=== PATIENT | female | born 1975 | race Hispanic/Latino ===

== ENCOUNTER 2022-04-29 05:30 | Observation (INO) | payer OTHER ==
[2022-04-25 11:48] VITALS: BP 140/81
[2022-04-25 11:50] LABS: BASOPHILS % (AUTO) 0.5 % (0.0-5.0); EOSINOPHILS % (AUTO) 3.2 % (0.0-8.0); HEMATOCRIT 45.6 % (36-48); LYMPHOCYTES % (AUTO) 28.5 % (21.0-51.0); MEAN CORPUSCULAR HEMOGLOBIN 31.5 pg (27.0-33.0); MEAN CORPUSCULAR HGB CONC 33.3 g/dL (32.0-36.0); MEAN CORPUSCULAR VOLUME 94.6 fL (79-99); MONOCYTES % (AUTO) 8.6 % (3.0-13.0); PLATELET COUNT (AUTO) 267 K/uL (130-400); RED BLOOD CELL COUNT(AUTO) 4.82 MIL/uL (4.00-5.50); RED CELL DISTRIBUTION WIDTH 12.2 % (11.0-15.5); WHITE BLOOD COUNT (AUTO) 8.3 K/uL (4.8-10.8)
[2022-04-25 12:14] LABS: APPEARANCE,URINE CLEAR (CLEAR); BILIRUBIN,URINE NEGATIVE (NEGATIVE); COLOR,URINE YELLOW (YELLOW); GLUCOSE, URINE (UA) NEGATIVE (NEGATIVE); KETONES,URINE NEGATIVE (NEGATIVE); LEUKOCYTE ESTERASE ,URINE TRACE (NEGATIVE); NITRATE,URINE NEGATIVE (NEGATIVE); OCCULT BLOOD,URINE SMALL (NEGATIVE); PROTEIN,URINE NEGATIVE (NEGATIVE); UROBILINOGEN,URINE 0.2 mg/dL (0.2-1.0)
[2022-04-25 12:19] LABS: BACTERIA,URINE Rare /HPF (None Seen); MUCUS,URINE Few LPF (None Seen); RBC,URINE 0-1 /HPF (0-1); SQUAMOUS EPITHELIAL CELL,UR Rare /HPF (0-2); YEAST,URINE BUDDING Few /HPF (None Seen)
[~2022-04-29] VITALS: Ht 162.6 cm; Wt 67.5 kg
[2022-04-29] VITALS (23 sets, daily range): BP systolic 128–144; BP diastolic 74–96
[2022-04-29] MEDS ORDERED: CEFAZOLIN SODIUM 1 GM VIAL ONE (07:00)
[2022-04-29] MEDS ORDERED: LACTATED RINGERS 1000ML 1,000 ML IV ONE (07:00)
[2022-04-29] MEDS ORDERED: MIDAZOLAM HCL 1 MG/ML 2ML VIAL ONE (09:13)
[2022-04-29] MEDS ORDERED: GLYCOPYRROLATE 1 MG/5 ML SYRINGE ONE (09:14)
[2022-04-29] MEDS ORDERED: ROCURONIUM 10MG/1ML SYR 10 MG/ML ML ONE (09:14)
[2022-04-29] MEDS ORDERED: PROPOFOL 10 MG/ML 20ML VIAL IV ONE (09:14)
[2022-04-29] MEDS ORDERED: FENTANYL CITRATE PF 50 MCG/1 ML 2ML VIAL ONE (09:14)
[2022-04-29] MEDS ORDERED: CEFAZOLIN SODIUM 2 GM VIAL IV ONE (09:15)
[2022-04-29] MEDS ORDERED: ONDANSETRON 4MG INJ ONE (09:47)
[2022-04-29] MEDS ORDERED: NEOSTIGMINE 5MG/5ML SYR IV ONE (09:50)
[2022-04-29] MEDS ORDERED: HYDROMORPHONE 1 MG INJ ONE (11:18)
[2022-04-29] MEDS ORDERED: IBUPROFEN 600 MG TABLET PO PRN (12:30)
[2022-04-29] MEDS ORDERED: ONDANSETRON 4MG INJ IVP PRN (12:30)
[2022-04-29] MEDS ORDERED: PROMETHAZINE HCL 25 MG/ML 1ML AMPULE IM PRN (12:30)
[2022-04-29] MEDS ORDERED: BISACODYL 10 MG SUPP.RECT RC PRN (12:30)
[2022-04-29] MEDS ORDERED: ACETAMINOPHEN WITH CODEINE 1 TAB TAB PO PRN (12:30)
[2022-04-29] MEDS: DEXTROSE 5 %-0.45 % NACL 1,000 ML IV PRN ×2 (12:44→18:34)
[2022-04-29] MEDS: PROMETHAZINE HCL 25 MG/ML 1ML AMPULE IM PRN ×2 (12:45→18:35)
[2022-04-29] MEDS: MEPERIDINE-PF 75 MG/ML SYG IM PRN ×2 (12:46→18:34)
[2022-04-30] MEDS: PROMETHAZINE HCL 25 MG/ML 1ML AMPULE IM PRN (01:36)
[2022-04-30] MEDS: MEPERIDINE-PF 75 MG/ML SYG IM PRN (01:37)
[2022-04-30] MEDS: DEXTROSE 5 %-0.45 % NACL 1,000 ML IV PRN (02:26)
[2022-04-30 02:30] VITALS: BP 140/86
[2022-04-30 05:43] LABS: HEMATOCRIT 40.3 % (36-48); MEAN CORPUSCULAR HEMOGLOBIN 31.5 pg (27.0-33.0); MEAN CORPUSCULAR HGB CONC 33.5 g/dL (32.0-36.0); MEAN CORPUSCULAR VOLUME 93.9 fL (79-99); RED BLOOD CELL COUNT(AUTO) 4.29 MIL/uL (4.00-5.50); RED CELL DISTRIBUTION WIDTH 12.2 % (11.0-15.5); WHITE BLOOD COUNT (AUTO) 16.4 K/uL (4.8-10.8)
[2022-04-30 07:18] VITALS: BP 127/80
[2022-04-30] MEDS: DOCUSATE SODIUM 100 MG CAP PO PRN ×2 (09:11→20:16)
[2022-04-30] MEDS: SIMETHICONE 80 MG TAB.CHEW PO PRN ×2 (09:11→20:16)
[2022-04-30 11:48] VITALS: BP 128/83
[2022-04-30 16:05] VITALS: BP 133/83
[2022-04-30] MEDS ORDERED: HYDROCODONE/ACETAMINOPHEN 5/325 MG TAB PO PRN (17:00)
[2022-04-30] MEDS ORDERED: IBUPROFEN 800 MG TAB PO PRN (17:00)
[2022-04-30] MEDS ORDERED: ACETAMINOPHEN WITH CODEINE 1 TAB TAB PO PRN (17:00)
[2022-04-30 19:06] VITALS: BP 109/72
[2022-04-30 22:50] VITALS: BP 133/81
[2022-05-01 03:02] VITALS: BP 122/74
[2022-05-01 07:13] VITALS: BP 128/87
[2022-05-01] MEDS: DOCUSATE SODIUM 100 MG CAP PO PRN (08:28)
[2022-05-01] MEDS ORDERED: ACET-2079 PO (09:49)
[2022-05-01] MEDS ORDERED: DOCU-116 PO (09:50)
[2022-05-01] MEDS ORDERED: NITR100C4 PO (09:51)
== END 2022-05-01 11:45 | disposition home or self-care (01) ==
LOC: DAH 05:30 → DAHIP 05:31 → UNDOADMOB 05:31 → WSH 05:31
PROVIDERS: ADMIT Obstetrics & Gynecology; ATTEND Obstetrics & Gynecology
DX: N81.4 Uterovaginal prolapse, unspecified (principal); Z20.822 Contact with and (suspected) exposure to COVID-19; N39.3 Stress incontinence (female) (male); K46.9 Unspecified abdominal hernia without obstruction or gangrene; K66.0 Peritoneal adhesions (postprocedural) (postinfection); Z90.710 Acquired absence of both cervix and uterus; Z79.899 Other long term (current) drug therapy
CPT/HCPCS: 84703; 85025; 86850; 86900; 86901; 87426; 81001; 36415 ×2; 58263; 57265; 57288; 96372 ×2; 81025; 85027; A6260; G0378 ×52; G0379; A4510; A4351; A4606; A4344; J0690 ×2; J7120; J3010; J1170; J3490; J2710; J2550 ×3; J2250; J2704; J2405; J2175 ×3; C1771; A4215; A4223; A4222; A4221; A4663; A4600